=== PATIENT | female | born 1950 | race Two or more races ===

== ENCOUNTER 2023-07-25 19:28 | Inpatient (IN) | payer OTHER, SELFPAY ==
--- NOTE | ~2023-07-25 | CT_ITS ---
EXAMINATION: CT HEAD WITHOUT CONTRAST CLINICAL INFORMATION: Cognitive decline. COMPARISON: No relevant prior imaging. TECHNIQUE: Contiguous axial imaging was performed from the skull base to vertex without intravenous administration of contrast. This CT examination was performed using dose optimization techniques as appropriate, variously including the following: *Automated exposure control *Adjustment of mA and/or kV according to patient size (this includes techniques or standardized protocols for targeted exams where dose is matched to indication/reason for exam; i.e. extremities or head) *Use of iterative reconstruction technique DLP: 632 mGy-cm FINDINGS: There is no acute intracranial hemorrhage or abnormal extra-axial collection. No intracranial mass effect or midline shift. Lateral and third ventricles are normal. No hydrocephalus. Jung-white matter differentiation is preserved and there is no evidence of acute territorial infarct. The calvarium and skull base are intact. Mastoid air cells and middle ear cavities are well aerated. No active paranasal sinus disease. CT/CT head/brain wo IV con IMPRESSION: Normal CT scan of the head.
[2023-07-25 20:46] VITALS: BP 220/110; PULSE 68; RESP 18; TEMP 36.2; O2SAT 99; BMI 31.8
[2023-07-25 21:45] VITALS: BP 160/90
[2023-07-25] MEDS: Acetaminophen 325 MG TABLET 650 MG PO (22:07)
[2023-07-25] MEDS: cloNIDine HCL 0.1 MG TABLET PO (22:08)
[2023-07-25] MEDS: traZODone HCL 50 MG TABLET PO (22:08)
--- NOTE | 2023-07-25 23:43 | PC.ADMIT ---
Lakesha was admitted from [facility] on a Conditional Voluntary hospitalization for suicidal ideation, anxiety, and depression. She is an Khmer speaking woman with a history of several previous suicide attempts. Lakesha is alert and oriented X's 4, soft spoken, pleasant and cooperative. she states that she is feeling overwhelmed because in June it was the third anniversary of [her] husbands . I never felt like this before, I need someone to help me. I want the doctor to get me some medication to feel better, and to get me a therapist or a psychiatrist Lakesha states that she has a supportive family but has been having a hard time for months she states she has lost 30 lbs in the past 3 months r/t decreased appetite secondary to increased depression and anxiety. B/P upon arrival to the unit 223/100 via machine and 200/92 manually. B/P rechecked approximately 1 hour later 160/90 0.1mg of Clonidine given. patient asleep for recheck. Admission documentation completed, treatment plan initiated, patient oriented to the unit, monitor for safety
[2023-07-26] MEDS: Omeprazole 20 MG CAPSULE.DR PO ×2 (06:36→17:02)
[2023-07-26 07:30] VITALS: BP 163/77; PULSE 80; RESP 16; TEMP 36.3; O2SAT 96
[2023-07-26] MEDS: NaPROXEN 500 MG TABLET PO ×2 (08:57→20:27)
[2023-07-26] MEDS: hydroCHLOROthiazide 25 MG TABLET 50 MG PO (08:57)
[2023-07-26] MEDS: Metoprolol Tartrate 100 MG TABLET PO (08:57)
[2023-07-26] MEDS: hydrOXYzine HCL 25 MG TABLET PO (09:02)
[2023-07-26 09:55] VITALS: BP 135/63; PULSE 54; RESP 16
--- NOTE | 2023-07-26 10:00 | P.HPPS_ITS ---
HPI Date of Service: 07/26/23 Chief Complaint: Major Depressive Disorder Recurrent Sources of Information: patient interviewed, chart reviewed and crisis/core team assessment reviewed HPI Subjective Notes: Sanders Warning (given and shows understanding) and Conditional Voluntary Narrative: Mrs. Carlton is a 73 year-old woman who was brought by daughter to [facility] ED due to reports of increase depression, suicidal ideation with plan to cut her wrist in setting of one anniversary of her 's 3 years ago, feeling unsafe at her current apartment and apparently fairly new onset of seeing shadows, hearing voices. In the ED, cbc without leukocitosis, does show normocitic anemia but MCV on higher end of normal. CMP without electrolyte imbalances. UA with trace of leukocites, no culture done. Will repeat UA. EKG sinus rythm, wnl QTc. On the unit, pt presents as cooperative and pleasant. She reports most problems started about 2-3 months ago after she moved to a new apartment. She states she does not feel safe there, that she has heard some voices tells her she should and that she is not safe there. She also finds the place suspicious, although she is not able to report in what way. She reports her anxiety is high and is her outmost concern at this point. She denies any plan or intent to harm herself but reports that when she called her daughter she was in severe emotional distress. She denies hx of suicide attempt. No hx of psychiatric symptoms nor prior hospitalizations. She reports poor sleep and poor appetite due to fear and anxiety. Past Psychiatric History: Inpt: none OP: none Past medication trials: none Hx of suicide attempt: none Medical Evaluation Reviewed: Yes [facility] Medical History (Updated 07/27/23 @ 09:23 by Lidia Boston) Mild intermittent asthma GERD (gastroesophageal reflux disease) HTN (hypertension) Osteoporosis Family History: none Social History: Pt has 5 children who are in the area. Her about 3 years ago. Substance History: None Trauma History: denies Diagnostics Vital Signs (24Hr): Vital Signs - 24 hr 07/25/23 20:46 07/25/23 21:45 07/26/23 07:30 Temperature 97.2 F 97.3 F Pulse Rate 68 80 Respiratory Rate 18 16 Blood Pressure 220/110 H 160/90 H 163/77 H Pulse Oximetry 99 96 Oxygen Delivery Method Room Air Room Air 07/26/23 09:55 Temperature Pulse Rate 54 Respiratory Rate 16 Blood Pressure 135/63 Pulse Oximetry Oxygen Delivery Method BMI result Body Mass Index 31.8 Meds/Allergies Meds Home Medications Medication Instructions Recorded Confirmed Type albuterol sulfate 90 mcg/actuation 2 puff inhalation Q4-5H PRN 07/25/23 07/26/23 History aerosol inhaler (Ventolin HFA) Shortness Of Breath alendronate 70 mg tablet 70 mg PO QWEEK 07/25/23 07/26/23 History lisinopril 40 mg tablet 40 mg PO DAILY 07/25/23 07/25/23 History metoprolol tartrate 100 1 tab PO DAILY 07/25/23 07/25/23 History mg-hydrochlorothiazide 50 mg tablet naproxen 500 mg tablet 500 mg PO BID 07/25/23 07/25/23 History pantoprazole 20 mg tablet,delayed 20 mg PO BID 07/25/23 07/25/23 History release Allergies Allergies Allergy/AdvReac Type Severity Reaction Status Date / Time Unable to Assess Allergy Verified 07/25/23 20:06 Mental Status Exam Mental Status Exam Narrative: Appearance: wearing hospital gown, fair hygiene, in NAD Behavior: cooperative Psychomotor: no agitation or retardation noted Speech: clear, normal rate/rhythm/volume, spontaneous TP: linear TC: feeling very anxious, somewhat uncomfortable about being on the unit Mood: anxious Affect: congruent SI: denies here on the unit as she feels we can help her and feels safe here HI: denies VH/AH: no overt signs Delusions: does appear with some degree of paranoia Insight/judgment: fair x 2 Memory/cog: alert, oriented x 3. However, do recommend completing MOCA and ACL. Assessment & Plan Assessment & Plan (1) MDD (major depressive disorder), recurrent episode, moderate: Status: Acute Code(s): F33.1 - Major depressive disorder, recurrent, moderate Plan Mrs. Carlton is a 73 year-old woman with no prior psych hx who was brought to [facility] ED due to increase depression and suicidal ideation with plan to cut her wrist. As interview goes on, it appears that she has been presenting with more paranoid ideas, and some AH, which is fairly new for her. She does NOT present as delirious. However, new onset of paranoia and hallucinations at her age is more concerning for dementing process like a vascular dementia. Recommend to do medical work up including head CT (looking mostly for atrophy and microvascular changes... may need ask radiologist again to commend on these aspects), check B12/folate (note that also normocitic anemia, MCV is in high end of normal), complete MOCA and ACL. Will repeat UA with microscopic. Gather additional collateral information from family with emphasis on decline in ability to function. We discussed risks, benefits and alternative treatment options, Mrs. carlton agreed to start remeron 15mg po qhs for depression. will start low dose risperidone 0.5mg po qhs. PLAN 1. Admit to , CV, 15 minutes checks for safety 2. start remeron 15mg po qhs 3. start low dose risperidone 0.5mg po qhs. 4. Obtain collateral information 5. Aftercare planning. Patient educated on: diagnosis and medication risk/benefits Informed Consent: understands Reason for continued inpatient stay Substantial Risk for: harm to self and inability to function Statement Statement: I have reviewed the history and physical and performed a pertinent examination on my patient. No changes have occurred unless specified. If the History and Physical was not performed prior to admission, the Hospitalist's service will be consulted for completing the admission p hysical. Time Spent With Patient Time: Total time managing care of this patient today __40__ minutes.
[2023-07-26] MEDS: lisinopriL 40 MG TABLET PO (12:40)
[2023-07-26 18:00] VITALS: BP 166/81; PULSE 61; RESP 16; TEMP 36.1; O2SAT 100
--- NOTE | 2023-07-26 18:05 | P.CONHOSP_ITS ---
History of Present Illness Data of Consult Service Date: 07/26/23 Primary Care Provider: Dorcas Vaca DO HPI Reason for consult: Admission H&P Pt is a 73-year-old Canadian-speaking female with a PMH significant for?HTN, mild intermittent asthma, osteopenia, GERD, anxiety and depression who is admitted to [facility] psychiatry unit for increasing depression with plan to cut herself with a knife. Patient apparently has been experiencing overwhelming hopelessness secondary to her 's anniversary. Medical consult for admission H&P. ?Patient seen and examined with help from bladder blower services. Patient comp lains of increased anxiety, but otherwise has no acute medical complaints at this time. Denies chest pain/pressure, palpitations. No shortness of breath. Denies fever, chills, nausea, vomiting, abdominal pain. No headache or acute vision changes. Review of Systems Review of Systems: Patient has no acute medical complaints at this time [facility] Medical History (Updated 07/26/23 @ 19:17 by LOS Woods) Mild intermittent asthma GERD (gastroesophageal reflux disease) HTN (hypertension) Osteoporosis Social History Household Members: None Housing: Apartment Do you presently have visiting nurse or other home services: No Patient Tobacco Use Status: Current everyday Tobacco user Tobacco use type: Cigarette Smoked in Last 30 Days: Yes Patient Interested in Nicotine Replacement: Yes Patient Given Instructions on How to Stop Smoking: No Second Hand Smoke Exposure: Yes Use of substances other than those prescribed or required for medical reasons: No Currently Displaying Signs/Symptoms of Drug Intoxication Withdrawal: No Any prior treatment program specific to substance use: No Have you been hit, kicked, punched, or otherwise hurt by someone within the past year? If so, by whom?: No Do you feel safe in your current relationship?: No Current Relationship Is there a partner from a previous relationship who is making you feel unsafe now?: No Are you made to feel afraid or neglected: No Advance Directives: No Advance Directives Information Provided: No Do you have thoughts of harming others: None Do you have a plan to hurt others: No Plan Recently lost weight without trying: Yes How much weight loss: 24-33 pounds Eating poorly because of decreased appetite: Yes Nutrition screen score: 6 Nutrition Risks: No Nutritional Risk Patient : No : No Poor oral hygiene: No service: No Sexual orientation: Straight/Heterosexual Meds Allergies Allergy/AdvReac Type Severity Reaction Status Date / Time Unable to Assess Allergy Verified 07/25/23 20:06 Active Medications: Current Medications Acetaminophen (Acetaminophen 325 Mg Tablet) 650 mg PO Q6H PRN PRN Reason: Headache/Pain Mild Scale (1-3) Last Admin: 07/25/23 22:07 Dose: 650 mg Al Hydroxide/Mg Hydroxide (Magnesium Hydrox/Alum Hydrox 30 Ml Oral.Susp) 30 ml PO Q6H PRN PRN Reason: Heartburn/Nausea Hydrochlorothiazide (Hydrochlorothiazide 25 Mg Tablet) 50 mg PO DAILY [facility]; Protocol Last Admin: 07/26/23 08:57 Dose: 50 mg Hydroxyzine HCl (Hydroxyzine Hcl 25 Mg Tablet) 25 mg PO Q6H PRN PRN Reason: Anxiety Last Admin: 07/26/23 09:02 Dose: 25 mg Lisinopril (Lisinopril 40 Mg Tablet) 40 mg PO DAILY [facility]; Protocol Last Admin: 07/26/23 12:40 Dose: 40 mg Magnesium Hydroxide (Milk Of Magnesia 30 Ml Oral.Susp) 30 ml PO DAILY PRN PRN Reason: Constipation Metoprolol Tartrate (Metoprolol Tartrate 100 Mg Tablet) 100 mg PO DAILY [facility]; Protocol Last Admin: 07/26/23 08:57 Dose: 100 mg Naproxen (Naproxen 500 Mg Tablet) 500 mg PO BID [facility] Last Admin: 07/26/23 08:57 Dose: 500 mg Nicotine Polacrilex (Nicotine Polacrilex 2 Mg Gum) 4 mg BUCCAL Q2H PRN PRN Reason: Nicotine Cravings Omeprazole (Omeprazole 20 Mg Capsule.Dr) 20 mg PO BID@0630,1630 [facility] Last Admin: 07/26/23 17:02 Dose: 20 mg Trazodone HCl (Trazodone Hcl 50 Mg Tablet) 50 mg PO BEDTIME PRN PRN Reason: Insomnia Home Medications Medication Instructions Recorded Confirmed Last Taken Type albuterol sulfate 90 mcg/actuation 2 puff inhalation Q4-5H PRN 07/25/23 07/26/23 Unknown History aerosol inhaler (Ventolin HFA) Shortness Of Breath alendronate 70 mg tablet 70 mg PO QWEEK 07/25/23 07/26/23 Unknown History lisinopril 40 mg tablet 40 mg PO DAILY 07/25/23 07/25/23 Unknown History metoprolol tartrate 100 1 tab PO DAILY 07/25/23 07/25/23 Unknown History mg-hydrochlorothiazide 50 mg tablet naproxen 500 mg tablet 500 mg PO BID 07/25/23 07/25/23 Unknown History pantoprazole 20 mg tablet,delayed 20 mg PO BID 07/25/23 07/25/23 Unknown History release Physical Exam Vital Signs and Narrative: Vital Signs: Last Vital Signs Temp 97.3 F 07/26/23 07:30 Pulse 54 07/26/23 09:55 Resp 16 07/26/23 09:55 BP 135/63 07/26/23 09:55 Pulse Ox 96 07/26/23 07:30 O2 Del Method Room Air 07/26/23 07:30 BMI result Body Mass Index 31.8 General: AOx3, no acute distress Resp: CTA bilaterally CVS: S1, S2, RRR GI: +BS, NT, no distention Skin: Warm, dry Neuro: Cranial nerves II-XII grossly intact bilaterally. Motor grossly intact bilaterally Extremities: Non pitting bilateral lower leg edema Psych: Appropriate affect Results Imaging Radiologist's Impressions: Impressions Head CT 07/26/23 13:36 IMPRESSION: Normal CT scan of the head. Assessment and Plan (1) Medical clearance for psychiatric admission: Status: Acute Plan Pt is a 73-year-old Canadian-speaking female with a PMH significant for?HTN, mild intermittent asthma, osteopenia, GERD, anxiety and depression who is admitted to [facility] psychiatry unit for increasing depression with plan to cut herself with a knife. Patient apparently has been experiencing overwhelming hopelessness secondary to her 's anniversary. Medical consult for admission H&P. Mood disorder Plan as per Psychiatry HTN Continue lisinopril, metoprolol, and hydrochlorothiazide Osteoporosis Continue alendronate GERD Continue PPI Thank you for allowing us to participate in the care of this patient. Signing off at this time. Please re-consult if any acute complaints or issues arise.
--- NOTE | 2023-07-26 19:17 | PC.NURSE ---
Mari Luke HIDE PULLER made aware of BP 188/81 on 07/26/23 at 1918.
[2023-07-26] MEDS: traZODone HCL 50 MG TABLET PO (20:27)
[2023-07-27] MEDS: Omeprazole 20 MG CAPSULE.DR PO ×2 (06:43→15:50)
[2023-07-27 08:07] VITALS: BP 159/72; PULSE 70; RESP 16; TEMP 36.4; O2SAT 95
[2023-07-27] MEDS: Metoprolol Tartrate 100 MG TABLET PO (08:09)
[2023-07-27] MEDS: lisinopriL 40 MG TABLET PO (08:09)
[2023-07-27] MEDS: NaPROXEN 500 MG TABLET PO ×2 (08:09→20:04)
[2023-07-27] MEDS: hydroCHLOROthiazide 25 MG TABLET 50 MG PO (08:09)
--- NOTE | 2023-07-27 09:22 | P.PNPSI_ITS ---
Subjective Subjective Date of Service: 07/27/23 Reason For Visit: Major Depressive Disorder Recurrent Subjective Notes: Conditional Voluntary Interim History: Seen with historical interpreter. Complaining of anxiety. When asked why she is anxious, states that she is thinking about her 4 family members who . Denies voices today but has been endorsing them as recently as yesterday. Reports eating and sleeping OK. Needs UA collected. Medication Compliance: Yes Side effects from medications: No Review of Systems Acute medical concerns: No Mental Status Exam Mental Status Exam Patient Appearance: Well Grooomed Patient Orientation: Person, Place and Time Level of Consciousness: Alert Patient Behavior: Appropriate Mood Description: Anxious Affect Description: Calm Patient Cognition Impaired: No Speech Pattern: Clear Hallucinations: None Delusions: Not Present Thought Process: Goal Oriented Thought Content: positive for Perseveration Depressive Symptoms: Increased Anxiety Judgement: Fair Diagnostics Vital Signs (24Hr): Vital Signs - 24 hr 07/26/23 09:55 07/26/23 18:00 07/27/23 08:07 Temperature 97 F 97.5 F Pulse Rate 54 61 70 Respiratory Rate 16 16 16 Blood Pressure 135/63 166/81 H 159/72 H Pulse Oximetry 100 95 Oxygen Delivery Method Room Air Room Air BMI result Body Mass Index 31.8 Imaging Radiology Impressions: ITS Impressions Head CT 07/26/23 13:36 IMPRESSION: Normal CT scan of the head. Medications Medications Current Medications Acetaminophen (Acetaminophen 325 Mg Tablet) 650 mg PO Q6H PRN PRN Reason: Headache/Pain Mild Scale (1-3) Last Admin: 07/25/23 22:07 Dose: 650 mg Al Hydroxide/Mg Hydroxide (Magnesium Hydrox/Alum Hydrox 30 Ml Oral.Susp) 30 ml PO Q6H PRN PRN Reason: Heartburn/Nausea Hydrochlorothiazide (Hydrochlorothiazide 25 Mg Tablet) 50 mg PO DAILY [facility]; Protocol Last Admin: 07/27/23 08:09 Dose: 50 mg Hydroxyzine HCl (Hydroxyzine Hcl 25 Mg Tablet) 25 mg PO Q6H PRN PRN Reason: Anxiety Last Admin: 07/26/23 09:02 Dose: 25 mg Lisinopril (Lisinopril 40 Mg Tablet) 40 mg PO DAILY [facility]; Protocol Last Admin: 07/27/23 08:09 Dose: 40 mg Magnesium Hydroxide (Milk Of Magnesia 30 Ml Oral.Susp) 30 ml PO DAILY PRN PRN Reason: Constipation Metoprolol Tartrate (Metoprolol Tartrate 100 Mg Tablet) 100 mg PO DAILY [facility]; Protocol Last Admin: 07/27/23 08:09 Dose: 100 mg Naproxen (Naproxen 500 Mg Tablet) 500 mg PO BID [facility] Last Admin: 07/27/23 08:09 Dose: 500 mg Nicotine Polacrilex (Nicotine Polacrilex 2 Mg Gum) 4 mg BUCCAL Q2H PRN PRN Reason: Nicotine Cravings Omeprazole (Omeprazole 20 Mg Capsule.Dr) 20 mg PO BID@0630,1630 [facility] Last Admin: 07/27/23 06:43 Dose: 20 mg Trazodone HCl (Trazodone Hcl 50 Mg Tablet) 50 mg PO BEDTIME PRN PRN Reason: Insomnia Last Admin: 07/26/23 20:27 Dose: 50 mg Allergies Allergies Allergy/AdvReac Type Severity Reaction Status Date / Time Unable to Assess Allergy Verified 07/25/23 20:06 Assessment & Plan Assessment & Plan (1) Medical clearance for psychiatric admission: Status: Acute Code(s): Z00.8 - Encounter for other general examination (2) MDD (major depressive disorder), recurrent episode, moderate: Status: Acute Code(s): F33.1 - Major depressive disorder, recurrent, moderate Assessment and Plan: Continue mirtazapine and risperdal Plan Pt is a 73-year-old Greek-speaking female with a PMH significant for?HTN, mild intermittent asthma, osteopenia, GERD, anxiety and depression who is admitted to psychiatry unit for increasing depression with plan to cut herself with a knife. Patient apparently has been experiencing overwhelming hopelessness secondary to her 's anniversary. Medical consult for admission H&P. Mood disorder Plan as per Psychiatry HTN Continue lisinopril, metoprolol, and hydrochlorothiazide Osteoporosis Continue alendronate GERD Continue PPI Thank you for allowing us to participate in the care of this patient. Signing off at this time. Please re-consult if any acute complaints or issues arise. Reason for continued inpatient stay Substantial Risk for: med/psych decompensation Time Spent With Patient Time: Total time managing care of this patient today ____ minutes.
--- NOTE | 2023-07-27 13:24 | PC.NURSE ---
Pt could not produce enough urine for UA sample. Will attempt to collect urine again later.
[2023-07-27 14:47] LABS: Appearance Urine Clear; Color Urine Yellow; Glucose Urine UA Negative (Negative); Leukocyte Esterase Urine Trace (Negative); Nitrite Urine Negative (Negative); Specific Gravity - Urine 1.015 (1.005-1.025); UMIC TRIGGER UA YES; Urine Blood Negative (Negative); Urine Ketones Negative (Negative); Urine Protein Negative (Neg-Trace)
[2023-07-27 14:52] LABS: Bacteria Urine Trace (None Seen); RBC Urine 0-2 /HPF (0-2); WBC Urine 0-5 /HPF (0-5)
[2023-07-27 20:00] VITALS: BP 194/86; PULSE 73; RESP 16; TEMP 36.1; O2SAT 96
[2023-07-27] MEDS: traZODone HCL 50 MG TABLET PO (20:04)
[2023-07-27] MEDS: Mirtazapine 15 MG TABLET PO (20:04)
[2023-07-27] MEDS: risperiDONE 0.5 MG TABLET PO (20:04)
[2023-07-27 22:49] VITALS: BP 140/60; PULSE 63; RESP 14; O2SAT 98
[2023-07-28] MEDS: Omeprazole 20 MG CAPSULE.DR PO ×2 (06:29→16:32)
[2023-07-28 07:20] VITALS: BP 160/74; PULSE 63; RESP 16; TEMP 35.5; O2SAT 98
--- NOTE | 2023-07-28 07:49 | P.PNPSI_ITS ---
Subjective Subjective Date of Service: 07/28/23 Reason For Visit: Major Depressive Disorder Recurrent Subjective Notes: Conditional Voluntary Interim History: Patient was seen and discussed in rounds today. Records and plans were reviewed. She has been doing a little better with some anxiety and depression over some family related issues. No auditory or visual hallucinations. Eating and sleeping well. No complaints or side effects. No changes were made today Review of Systems Review of Systems Yes all other systems are reviewed and are negative Mental Status Exam Mental Status Exam Patient Appearance: Well Grooomed Patient Orientation: Person, Place and Time Level of Consciousness: Alert Patient Behavior: Appropriate Mood Description: Anxious Affect Description: Calm Patient Cognition Impaired: No Speech Pattern: Clear Hallucinations: None Delusions: Not Present Thought Process: Goal Oriented Thought Content: positive for Perseveration Depressive Symptoms: Increased Anxiety Judgement: Fair Diagnostics Vital Signs (24Hr): Vital Signs - 24 hr 07/27/23 08:07 07/27/23 20:00 07/27/23 22:49 Temperature 97.5 F 96.9 F Pulse Rate 70 73 63 Respiratory Rate 16 16 14 Blood Pressure 159/72 H 194/86 H 140/60 H Pulse Oximetry 95 96 98 Oxygen Delivery Method Room Air Room Air Room Air BMI result Body Mass Index 31.8 Labs Labs: Laboratory Results - last 48 hr 07/27/23 14:35 Urine Color Yellow Urine Appearance Clear Urine pH 5.0 Ur Specific [place] 1.015 Urine Protein Negative Urine Glucose (UA) Negative Urine Ketones Negative Urine Blood Negative Urine Nitrite Negative Ur Leukocyte Esterase Trace H Urine RBC 0-2 Urine WBC 0-5 Ur Squamous Epith Cells 3-5 Urine Bacteria Trace Hyaline Casts 3-5 Imaging Radiology Impressions: ITS Impressions Head CT 07/26/23 13:36 IMPRESSION: Normal CT scan of the head. Medications Medications Current Medications Acetaminophen (Acetaminophen 325 Mg Tablet) 650 mg PO Q6H PRN PRN Reason: Headache/Pain Mild Scale (1-3) Last Admin: 07/25/23 22:07 Dose: 650 mg Al Hydroxide/Mg Hydroxide (Magnesium Hydrox/Alum Hydrox 30 Ml Oral.Susp) 30 ml PO Q6H PRN PRN Reason: Heartburn/Nausea Hydrochlorothiazide (Hydrochlorothiazide 25 Mg Tablet) 50 mg PO DAILY [facility]; Protocol Last Admin: 07/27/23 08:09 Dose: 50 mg Hydroxyzine HCl (Hydroxyzine Hcl 25 Mg Tablet) 25 mg PO Q6H PRN PRN Reason: Anxiety Last Admin: 07/26/23 09:02 Dose: 25 mg Lisinopril (Lisinopril 40 Mg Tablet) 40 mg PO DAILY [facility]; Protocol Last Admin: 07/27/23 08:09 Dose: 40 mg Magnesium Hydroxide (Milk Of Magnesia 30 Ml Oral.Susp) 30 ml PO DAILY PRN PRN Reason: Constipation Metoprolol Tartrate (Metoprolol Tartrate 100 Mg Tablet) 100 mg PO DAILY [facility]; Protocol Last Admin: 07/27/23 08:09 Dose: 100 mg Mirtazapine (Mirtazapine 15 Mg Tablet) 15 mg PO BEDTIME [facility] Last Admin: 07/27/23 20:04 Dose: 15 mg Naproxen (Naproxen 500 Mg Tablet) 500 mg PO BID [facility] Last Admin: 07/27/23 20:04 Dose: 500 mg Nicotine Polacrilex (Nicotine Polacrilex 2 Mg Gum) 4 mg BUCCAL Q2H PRN PRN Reason: Nicotine Cravings Omeprazole (Omeprazole 20 Mg Capsule.Dr) 20 mg PO BID@0630,1630 [facility] Last Admin: 07/28/23 06:29 Dose: 20 mg Risperidone (Risperidone 0.5 Mg Tablet) 0.5 mg PO BEDTIME [facility] Last Admin: 07/27/23 20:04 Dose: 0.5 mg Trazodone HCl (Trazodone Hcl 50 Mg Tablet) 50 mg PO BEDTIME PRN PRN Reason: Insomnia Last Admin: 07/27/23 20:04 Dose: 50 mg Allergies Allergies Allergy/AdvReac Type Severity Reaction Status Date / Time Unable to Assess Allergy Verified 07/25/23 20:06 Assessment & Plan Assessment & Plan (1) MDD (major depressive disorder), recurrent episode, moderate: Status: Acute Code(s): F33.1 - Major depressive disorder, recurrent, moderate (2) Medical clearance for psychiatric admission: Status: Acute Code(s): Z00.8 - Encounter for other general examination Plan Mrs. Carlton is a 73 year-old woman with no prior psych hx who was brought to [facility] ED due to increase depression and suicidal ideation with plan to cut her wrist. As interview goes on, it appears that she has been presenting with more paranoid ideas, and some AH, which is fairly new for her. She does NOT present as delirious. However, new onset of paranoia and hallucinations at her age is more concerning for dementing process like a vascular dementia. Recommend to do medical work up including head CT (looking mostly for atrophy and microvascular changes... may need ask radiologist again to commend on these aspects), check B12/folate (note that also normocitic anemia, MCV is in high end of normal), complete MOCA and ACL. Will repeat UA with microscopic. Gather additional collateral information from family with emphasis on decline in ability to function. We discussed risks, benefits and alternative treatment options, Mrs. carlton agreed to start remeron 15mg po qhs for depression. will start low dose risperidone 0.5mg po qhs. PLAN 1. Admit to M3, CV, 15 minutes checks for safety 2. start remeron 15mg po qhs 3. start low dose risperidone 0.5mg po qhs. 4. Obtain collateral information 5. Aftercare planning. 07/28: Continue current plans and regimen Reason for continued inpatient stay Substantial Risk for: med/psych decompensation Time Spent With Patient Time: Total time managing care of this patient today ____ minutes.
[2023-07-28 08:30] VITALS: BP 201/86; PULSE 66; RESP 18; O2SAT 99
[2023-07-28] MEDS: NaPROXEN 500 MG TABLET PO ×2 (08:31→20:47)
[2023-07-28] MEDS: lisinopriL 40 MG TABLET PO (08:32)
[2023-07-28] MEDS: Metoprolol Tartrate 100 MG TABLET PO (08:32)
[2023-07-28] MEDS: hydroCHLOROthiazide 25 MG TABLET 50 MG PO (08:33)
[2023-07-28 09:40] VITALS: BP 138/64; PULSE 61; RESP 18; O2SAT 99
[2023-07-28 19:45] VITALS: BP 186/82; PULSE 71; RESP 18; TEMP 36.4; O2SAT 97
[2023-07-28] MEDS: Mirtazapine 15 MG TABLET PO (20:48)
[2023-07-28] MEDS: cloNIDine HCL 0.1 MG TABLET PO (20:48)
[2023-07-28] MEDS: risperiDONE 0.5 MG TABLET PO (20:48)
[2023-07-28] MEDS: Acetaminophen 325 MG TABLET 650 MG PO (20:48)
[2023-07-28 21:32] VITALS: BP 163/75; PULSE 75; RESP 18
--- NOTE | 2023-07-29 02:19 | PC.NURSE ---
Lakesha was noted to be visible in the day room socializing with select peers and watching the football game. she c/o a headache and her B/P was noted to be 186/82. a 1x order for 0.1mg of clonidine was obtained and administered.B/P recheck 163/75 and patient stated that her headache was better. she endorses depression and anxiety r/t wanting to go home and be with her family. she denies all other psych symptoms. monitor for safety, continue current Plan of Care
[2023-07-29] MEDS: Omeprazole 20 MG CAPSULE.DR PO ×2 (06:44→16:15)
[2023-07-29 07:15] VITALS: BP 174/85; PULSE 78; RESP 18; TEMP 36.1; O2SAT 98
[2023-07-29] MEDS: hydroCHLOROthiazide 25 MG TABLET 50 MG PO (08:27)
[2023-07-29] MEDS: Metoprolol Tartrate 100 MG TABLET PO (08:28)
[2023-07-29] MEDS: NaPROXEN 500 MG TABLET PO ×2 (08:28→20:43)
[2023-07-29] MEDS: lisinopriL 40 MG TABLET PO (08:33)
--- NOTE | 2023-07-29 15:08 | P.DS_ITS ---
DS: Providers Provider Date of Service: 07/29/23 Date of admission: 07/25/23 19:28 Primary care physician: Dorcas Vaca DO Consults: 07/25/23 20:06 Consult to Hospitalist Routine Comment: Consulting Provider: Hospitalist Reason For Exam: OSH admission DS: Diagnosis Discharge Diagnosis (1) MDD (major depressive disorder), recurrent episode, moderate: Status: Acute (2) Medical clearance for psychiatric admission: Status: Acute DS: Medications Discharge Medications Home Medications: Home Medications Medication Instructions Recorded Confirmed albuterol sulfate 90 mcg/actuation 2 puff inhalation Q4-5H PRN 07/25/23 07/26/23 aerosol inhaler (Ventolin HFA) Shortness Of Breath alendronate 70 mg tablet 70 mg PO QWEEK 07/25/23 07/26/23 lisinopril 40 mg tablet 40 mg PO DAILY 07/25/23 07/25/23 metoprolol tartrate 100 1 tab PO DAILY 07/25/23 07/25/23 mg-hydrochlorothiazide 50 mg tablet pantoprazole 20 mg tablet,delayed 20 mg PO BID 07/25/23 07/25/23 release Previous Rx's Medication Instructions Recorded mirtazapine 15 mg tablet 15 mg PO BEDTIME 30 days #30 tabs 07/29/23 naproxen 500 mg tablet 500 mg PO BID 30 days #60 tabs 07/29/23 risperidone 0.5 mg tablet 0.5 mg PO BEDTIME 30 days #30 tabs 07/29/23 Mental Status Exam Mental Status Exam Narrative: Appearance: wearing street clothes, fair hygiene, in NAD Behavior: cooperative Psychomotor: no agitation or retardation noted Speech: clear, normal rate/rhythm/volume, spontaneous TP: linear TC: no delusions or paranoia Mood: good Affect: congruent SI: denies since prior to admission HI: denies VH/AH: denies since prior to admission Insight/judgment: fair x 2 Data Data Completed and Pending Completed studies during hospitalization [Text1]: 07/27/23 14:35 Urine Color Yellow Urine Appearance Clear Urine pH 5.0 Ur Specific [place] 1.015 Urine Protein Negative Urine Glucose (UA) Negative Urine Ketones Negative Urine Blood Negative Urine Nitrite Negative Ur Leukocyte Esterase Trace H Urine RBC 0-2 Urine WBC 0-5 Ur Squamous Epith Cells 3-5 Urine Bacteria Trace Hyaline Casts 3-5 Imaging Diagnostic Imaging Impressions Head CT 07/26/23 13:36 IMPRESSION: Normal CT scan of the head. DS: Summary Hospital Course Hospital Course: per 07/26 admission note: Mrs. Kline is a 73 year-old woman who was brought by daughter to [facility] ED due to reports of increase depression, suicidal ideation with plan to cut her wrist in setting of one anniversary of her 's 3 years ago, feeling unsafe at her current apartment and apparently fairly new onset of seeing shadows, hearing voices. In the ED, cbc without leukocitosis, does show normocitic anemia but MCV on higher end of normal. CMP without electrolyte imbalances. UA with trace of leukocites, no culture done. Will repeat UA. EKG sinus rythm, wnl QTc. On the unit, pt presents as cooperative and pleasant. She reports most problems started about 2-3 months ago after she moved to a new apartment. She states she does not feel safe there, that she has heard some voices tells her she should and that she is not safe there. She also finds the place suspicious, although she is not able to report in what way. She reports her anxiety is high and is her outmost concern at this point. She denies any plan or intent to harm herself but reports that when she called her daughter she was in severe emotional distress. She denies hx of suicide attempt. No hx of psychiatric symptoms nor prior hospitalizations. She reports poor sleep and poor appetite due to fear and anxiety. Past Psychiatric History: Inpt: none OP: none Past medication trials: none Hx of suicide attempt: none Medical Evaluation Reviewed: Yes [facility] Medical History (Updated 07/27/23 @ 09:23 by Lidia Boston) Mild intermittent asthma GERD (gastroesophageal reflux disease) HTN (hypertension) Osteoporosis Family History: none Social History: Pt has 5 children who are in the area. Her about 3 years ago. Substance History: None Trauma History: denies Precis: Mrs. Kline is a 73 year-old woman with no prior psych hx who was brought to [facility] ED due to increase depression and suicidal ideation with plan to cut her wrist. As interview goes on, it appears that she has been presenting with more paranoid ideas, and some AH, which is fairly new for her. She does NOT present as delirious. However, new onset of paranoia and hallucinations at her age is more concerning for dementing process like a vascular dementia. Recommend to do medical work up including head CT (looking mostly for atrophy and microvascular changes... may need ask radiologist again to commend on these aspects), check B12/folate (note that also normocitic anemia, MCV is in high end of normal), complete MOCA and ACL. Will repeat UA with microscopic. Gather additional collateral information from family with emphasis on decline in ability to function. We discussed risks, benefits and alternative treatment options, Mrs. kline agreed to start remeron 15mg po qhs for depression. will start low dose risperidone 0.5mg po qhs. 07/26: Admit to M3, CV, 15 minutes checks for safety. start remeron 15mg po qhs. start low dose risperidone 0.5mg po qhs. Obtain collateral information. Aftercare planning. 07/28: Continue current plans and regimen. 07/29: calm, cooperative, mood improved. asking for discharge tomorrow. meds reviewed, reconciled, prescribed. 07/30: stable. discharged as per plan. Time Spent with Patient Time attestation: Total time managing care of this patient today ____ minutes. Time spent: Greater than 30 minutes Discharge Plan Discharge Anticipated Discharge Date/Time: 07/30/23 10:30 Patient Disposition: Home, Self-Care Discharge Diagnosis: Depressive Disorder Referrals: Anuj Meraz (Therapy) [Other] - 07/31/23 1:00 pm (IN OFFICE APPOINTMENT -Please arrive fifteen minutes early to your appointment in order to fill out necessary paperwork. ) Corine Meier (Psychiatry) [Other] - 08/29/23 9:15 am (TELEHEALTH APPOINTMENT -Psychiatric Evaluation ) Corine Meier (Psychiatry) [Other] - 09/30/23 11:00 am (TELEHEALTH APPOINTMENT -Medication Management ) Dorcas Vaca, [Primary Care Provider] - 1 Week (PCP is Dorcas Vaca @ [phone], office closed- patient needs to call to make discharge follow-up.) Discharge Medications: New mirtazapine 15 mg Tablet 15 mg PO BEDTIME 30 Days Qty: 30 0RF risperidone 0.5 mg Tablet 0.5 mg PO BEDTIME 30 Days Qty: 30 0RF Continued alendronate 70 mg tablet 70 mg PO QWEEK metoprolol ta-hydrochlorothiaz 100-50 mg tablet 1 tab PO DAILY pantoprazole 20 mg tablet,delayed release (DR/EC) 20 mg PO BID albuterol sulfate [Ventolin HFA] 90 mcg/actuation HFA aerosol inhaler 2 puff inhalation Q4-5H PRN (Reason: Shortness Of Breath) lisinopril 40 mg tablet 40 mg PO DAILY naproxen 500 mg tablet 500 mg PO BID 30 Days Qty: 60 0RF Rx Instructions: X's 5 days Discharge Orders: Discharge Order (Routine); Ordered 07/30/23 Ordered By: Brandon Chin Diet: Advance to usual diet Activity on Discharge: As tolerated Stand Alone Forms: Patient Portal Discharge page, Community Support Care Plan Goals: remain safe and stable in the outpatient treatment setting Health Concerns: none Plan of Treatment: take medications as prescribed, attend appoitments as scheduled Assessment: not at imminent risk of harm to self or others
[2023-07-29 18:00] VITALS: BP 146/69; PULSE 69; RESP 15; TEMP 36; O2SAT 96
[2023-07-29] MEDS: risperiDONE 0.5 MG TABLET PO (20:44)
[2023-07-29] MEDS: Mirtazapine 15 MG TABLET PO (20:44)
[2023-07-30] MEDS: Omeprazole 20 MG CAPSULE.DR PO (05:51)
[2023-07-30] MEDS: hydroCHLOROthiazide 25 MG TABLET 50 MG PO (08:32)
[2023-07-30] MEDS: Metoprolol Tartrate 100 MG TABLET PO (08:32)
[2023-07-30] MEDS: NaPROXEN 500 MG TABLET PO (08:32)
[2023-07-30] MEDS: lisinopriL 40 MG TABLET PO (08:33)
[2023-07-30 08:45] VITALS: BP 150/66; PULSE 63; RESP 16; TEMP 36.2; O2SAT 98
--- NOTE | 2023-07-30 09:52 | PC.NURSE ---
Lakesha is alert, fully oriented, pleasant and cooperative with discharge process. She denies ideation, plan or intent to harm self or others. She denies physical complaint. She verbalizes understanding of discharge plan including medication regime and appointments.
== END 2023-07-30 10:40 | disposition home or self-care (01) | DRG 885 ==
PROVIDERS: Social Worker; Admitting Provider Psychiatry & Neurology Psychiatry; PCP Student in an Organized Health Care Education/Training Program; Visit Provider Psychiatry & Neurology Psychiatry
DX: F33.1 Major depressive disorder, recurrent, moderate (principal); R45.851 Suicidal ideations; J45.20 Mild intermittent asthma, uncomplicated; I10 Essential (primary) hypertension; K21.9 Gastro-esophageal reflux disease without esophagitis; F17.210 Nicotine dependence, cigarettes, uncomplicated; Z71.6 Tobacco abuse counseling; Z79.899 Other long term (current) drug therapy
CPT/HCPCS: 70450; 81001

== ENCOUNTER → 2023-07-25 19:28 | Outpatient (BNV) | payer OTHER, SELFPAY | PROVIDERS: Admitting Provider Psychiatry & Neurology Psychiatry; PCP Student in an Organized Health Care Education/Training Program; Visit Provider Student in an Organized Health Care Education/Training Program | DX: Z02.2 Encounter for examination for admission to residential institution (principal) | CPT/HCPCS: 99429 ==

== ENCOUNTER → 2023-07-25 19:28 | Outpatient (BNV) | payer OTHER, SELFPAY | PROVIDERS: Admitting Provider Psychiatry & Neurology Psychiatry; PCP Student in an Organized Health Care Education/Training Program; Visit Provider Psychiatry & Neurology Psychiatry | DX: F33.1 Major depressive disorder, recurrent, moderate (principal) | CPT/HCPCS: 90792; 99231; 99238 ==

== ENCOUNTER 2025-06-15 10:45 | Outpatient (AMB) | payer OTHER, SELFPAY ==
--- NOTE | 2025-06-15 11:24 | A.OFFVIS_ITS ---
Intake Visit Reasons: Memory Loss Allergies Unable to Assess Allergy (Verified 07/25/23 20:06) HPI Comments Details: The patient is a 75-year-old female who presents for evaluation of memory loss, brought in by her daughter. The patient's daughter reports that she forgets a lot, and there have been a couple of instances where she has gone outside and become disoriented, requiring assistance to return home, though this does not happen often. Associated symptoms include urinary incontinence and occasional difficulty walking. Her daughter notes a personality change, describing her as more depressed now and prone to crying. The patient suffers from insomnia and requires an [id number] medication nightly to sleep. About 4-5 months ago, she experienced an episode of visual hallucinations, which prompted an ambulance call and a week-long admission to a facility in [place]. The patient was admitted to a psychiatric [facility] last year for depression with suicidal ideation. A head CT at that time was normal. She subsequently refused to continue with both medication and care for her psychiatric condition. There is no family history of dementia. She has a [employer] but previously worked as a INSTRUCTIONAL TECHNOLOGY DIRECTOR, having stopped about 20 years ago. She does not use alcohol or illicit drugs and lives with her daughter. She is currently attending a program where she receives therapy, and while her daughter notes some improvement, she still experiences episodes of depression. [facility] Medical History (Updated 06/15/25 @ 11:36 by Ruth Pereira MD) Medical clearance for psychiatric admission Mild intermittent asthma GERD (gastroesophageal reflux disease) HTN (hypertension) Osteoporosis Social History Household Members: None Housing: Apartment Do you presently have visiting nurse or other home services: No Patient Tobacco Use Status: Current everyday Tobacco user Tobacco use type: Cigarette Second Hand Smoke Exposure: Yes service: No Sexual orientation: Straight/Heterosexual Review of Systems Narrative - Neurological: Reports memory loss and episodes of disorientation. - Denies syncope. - Psychiatric: Reports depressed mood and crying spells. - History of visual hallucinations and suicidal ideation. - Musculoskeletal: Reports occasional difficulty with walking. - Genitourinary: Reports urinary incontinence. - Sleep: Reports insomnia. Physical Exam Neuro Other: Mental Status: She is alert and awake with normal spontaneity of speech fluency comprehension and affect. Cranial Nerves: CN II: Visual dale full to confrontation, visual acuity intact. CN III, IV, : Pupils equal, round, reactive to light and accommodation. Extraocular movements are normal. CN V: Facial sensation is normal. CN VII: Facial movements symmetrical. CN VIII: Hearing intact to bedside conversation is normal. CN IX, X: Palate elevates symmetrically. CN XI: Shoulder shrug and head turn symmetrical. CN XII: Tongue midline without atrophy or fasciculations. Motor: Bulk and tone normal in all extremities. No significant muscle weakness in arms and legs. No drift. Reflexes: Deep tendon reflexes are trace to absent. Coordination: [id number] is okay. Gait and Station: No obvious gait abnormality. No ataxia or instability. Extrapyramidal: Full facial expressions and blinking. No rigidity. Movements are appropriate with no tremor or abnormality. Speech: Normal; no dysarthria or tremor. Results Reviewed Results Reviewed: CT HEAD WITHOUT CONTRAST CLINICAL INFORMATION: Cognitive decline. COMPARISON: No relevant prior imaging. TECHNIQUE: Contiguous axial imaging was performed from the skull base to vertex without intravenous administration of contrast. This CT examination was performed using dose optimization techniques as appropriate, variously including the following: *Automated exposure control *Adjustment of mA and/or kV according to patient size (this includes techniques or standardized protocols for targeted exams where dose is matched to indication/reason for exam; i.e. extremities or head) *Use of iterative reconstruction technique DLP: 632 mGy-cm FINDINGS: There is no acute intracranial hemorrhage or abnormal extra-axial collection. No intracranial mass effect or midline shift. Lateral and third ventricles are normal. No hydrocephalus. Jung-white matter differentiation is preserved and there is no evidence of acute territorial infarct. The calvarium and skull base are intact. Mastoid air cells and middle ear cavities are well aerated. No active paranasal sinus disease. CT/CT head/brain wo IV con IMPRESSION: Normal CT scan of the head. Assessment & Plan Assessment & Plan (1) Dementia with behavioral disturbance: Comment: CT brain WO at [facility] [place] Jul 2023: Minimal MVD Code(s): F03.918 - Unspecified dementia, unspecified severity, with other behavioral disturbance Category: Medical Plan Impression: Dementia with behavioral symptoms including depression Rec: a: Education of daughter b: Labs c: Sertraline 25mg one a day d: Continue with therapy I discussed with the patient's daughter that her mother's symptoms of forgetfulness and disorientation could be due to a dementia process, but also noted that they can present as part of a severe depression. I explained that we need to rule out treatable causes for her symptoms, and for this reason, I ordered blood tests and a new CT scan of her head. I recommended starting with an antidepressant as the first step in treatment. I informed her that the prescription was sent to the pharmacy, the lab orders were in the computer for her to have done today, and that the office would provide a follow-up appointment. Orders: Orders Thyroid Stimulating Hormone Today F03.918 - Unspecified dementia, unspecified severity, with other behavioral disturbance Syphilis Screen Today F03.918 - Unspecified dementia, unspecified severity, with other behavioral disturbance Lyme IgG/IgM w/reflex to WB Today F03.918 - Unspecified dementia, unspecified severity, with other behavioral disturbance Vitamin B12 and Folate Today F03.918 - Unspecified dementia, unspecified severity, with other behavioral disturbance Medications: New sertraline 25 mg PO DAILY 90 tabs 0RF Coding Level of Care Code New Pt Level 4 (43635) Diagnoses Dementia with behavioral disturbance F03.918
--- OUTSIDE RECORDS SUMMARY | 2025-06-15 14:28 | XMS_ITS | Clinical Summary ---
Author Organization [facility] [address] [facility] [place] Address [address] [place] [address] Phone Care Team Providers Care Communications Coordinator Name Role Phone Chantelle Voss MD Primary Care Provider Allergies No known active allergies Medications loratadine (CLARITIN) 10 mg tablet Take 1 Tablet by mouth daily for 360 days. 3 Active calcium carbonate 1,500 mg (600 mg elemental calcium) tablet TAKE 1 TABLET BY MOUTH TWICE DAILY WITH MEALS 56 tablet 5 Active cholecalciferol (VITAMIN D-3) 25 mcg (1,000 unit) capsule Take 1 capsule (1,000 Units total) by mouth 1 (one) time each day. Active fluticasone propionate (FLONASE) 50 mcg/actuation nasal spray SHAKE LIQUID AND USE 2 SPRAYS IN EACH NOSTRIL DAILY NEEDED FOR RUNNY NOSE OR ALLERGIES 48 g 5 Active metoprolol-hydr oCHLOROthiazide (LOPRESSOR HCT) 100-50 mg per tablet Take 1 tablet by mouth 1 (one) time each day. 90 tablet 5 Active pantoprazole (PROTONIX) 20 mg EC tablet Take 1 tablet (20 mg total) by mouth 2 (two) times a day. 180 tablet 5 Active simvastatin (ZOCOR) 20 mg tablet Take 1 tablet (20 mg total) by mouth at bedtime. 90 tablet 5 Active lisinopril (PRINIVIL,ZESTR IL) 40 mg tablet Take 1 tablet (40 mg total) by mouth 1 (one) time each day. 90 tablet 5 Active albuterol HFA (PROAIR HFA ; PROVENTIL HFA ; VENTOLIN HFA) 90 mcg/actuation inhaler Inhale 2 Puffs into the lungs every 4 hours as needed for Cough or Wheezing. 54 g 5 Active metoprolol-hydr oCHLOROthiazide (LOPRESSOR HCT) 100-50 mg per tablet TAKE 1 TABLET BY MOUTH EVERY DAY 90 tablet 1 5 05/18/20 25 Discontinu ed(Reorder ) lisinopril (PRINIVIL,ZESTR IL) 40 mg tablet Take 1 tablet (40 mg total) by mouth 1 (one) time each day. 90 tablet 1 5 05/18/20 25 Discontinu ed(Reorder ) simvastatin (ZOCOR) 20 mg tablet Take 1 tablet (20 mg total) by mouth at bedtime. 90 tablet 1 5 05/18/20 25 Discontinu ed(Reorder ) pantoprazole (PROTONIX) 20 mg EC tablet Take 1 tablet (20 mg total) by mouth 2 (two) times a day. 180 tablet 5 05/18/20 25 Discontinu ed(Reorder ) albuterol HFA (PROAIR HFA ; PROVENTIL HFA ; VENTOLIN HFA) 90 mcg/actuation inhaler Inhale 2 Puffs into the lungs every 4 hours as needed for Cough or Wheezing. 6.7 g 5 05/18/20 25 Discontinu ed(Reorder ) fluticasone propionate (FLONASE) 50 mcg/actuation nasal spray SHAKE LIQUID AND USE 2 SPRAYS IN EACH NOSTRIL DAILY NEEDED FOR RUNNY NOSE OR ALLERGIES 48 g 5 05/18/20 25 Discontinu ed(Reorder ) Active Problems Problem Noted Date Diagnosed Date Chronic back pain 03/17/2024 Essential hypertension, benign 03/17/2024 GERD (gastroesophageal reflux disease) 4 Hyperlipemia 03/17/2024 Mild intermittent asthma without complication Urge incontinence of urine 05/16/2023 Varicose veins with pain 02/06/2019 Vitamin D deficiency 12/23/2018 Hypokalemia 11/18/2018 Overview (03/17/2024): 3.1--will replace with k- tab Prediabetes 11/18/2018 Vitamin B12 deficiency 11/18/2018 Tubular adenoma of colon 11/05/2018 Overview (03/17/2024): 2013, due in 2016 Varicose veins of both lower extremities 019 Osteoporosis 04/29/2015 Overview (03/17/2024): Bone density scan 04/08/2015 OA (osteoarthritis) of knee 09/25/2011 Depression 10/05/2010 Immunizations Immunization Administration Dates Next Due Influenza Quadravalent, MDCK , 0.5ml, with preservative (Flucelvax) 6mo and older 06/04/2017 Influenza trivalent, 0.5mL ( Fluzone High-dose) 65yo and older 07/16/2023,03/07/2022,03/31/2015,03/29,05/05/2008 [facility] SARS-CoV-2 COVID-19, mRNA, LNP-S, preservative free 06/23/2021,08/05/2020,07/15/2020 Pneumococcal conjugate 20 va lent (Prevnar 20, PCV 20) 2mo and older 03/13/2023 Pneumococcal polysaccharide 23 valent (Pneumovax 23) 2yo and older 03/31/2015 Td Tetanus diptheria (Tdvax) 7yo and older 11/05/2018 Tdap Tetanus diptheria acell ular pertussis (Boostrix; Adacel) 7yo and older 06/21/2008 Surgical History Surgery Date Site/Laterality Comments CHOLECYSTECTOMY PROCEDURE: HISTORICAL CHOLECYSTECTOMY HYSTERECTOMY 2002 PROCEDURE: HISTORICAL TOTAL HYSTERECTOMY WITH BSO; COMMENT: for bleeding, benign TOTAL KNEE ARTHROPLASTY PROCEDURE: HISTORICAL TOTAL KNEE REPLACE; COMMENT: left COLONOSCOPY 2006 PROCEDURE: HISTORICAL COLONOSCOPY; COMMENT: negative COLONOSCOPY 2013 PROCEDURE: HISTORICAL COLONOSCOPY; COMMENT: polyps x 2: tubulovillous adenomas. UPPER GASTROINTESTINAL ENDOSCOPY 10/28/1998 PROCEDURE: [place] UPPER GI ENDOSCOPY PERFORMED; COMMENT: Dr Cooper - esophagitis / gastritis; bx no Barretts & H. pylori. COLONOSCOPY 03/18/2019 PROCEDURE: HISTORICAL COLONOSCOPY; COMMENT: Three polyps: Tubular adenoma x2, tubulovillous x1. Medical History Medical History Date Comments Chronic back pain DX:Chronic elo k pain GERD (gastroesophageal reflux disease) DX:GERD (gastroesophageal reflux disease) Depression 10/05/2010 DX:Depression History of colonic polyps DX:His tory of colonic polyps Osteoporosis 04/29/2015 DX:Osteoporosis; COMMENT: Bone density scan 04/08/2015 OA (osteoarthritis) of knee 09/25/2011 DX:O A (osteoarthritis) of knee Hyperlipemia DX:Hyperlipemia Essential hypertension, benign D X:Essential hypertension, benign Tubular adenoma of colon 11/05/2018 DX:Tubu lar adenoma of colon Family History Medical History Relation Name Comments Colon cancer Brother 1 Colon cancer Brother 2 No Known Problems Daughter 1 No Known Problems Daughter 2 No Known Problems Daughter 3 No Known Problems Daughter 4 Hypertension Father Cataracts Mother Glaucoma Mother Breast cancer Other m cousin 48 Diabetes Sister 1 Colon cancer Sister 2 Other: Bone cancer Sister 3 knee canc er, recieved chemotherapy No Known Problems Son Blindness Neg Hx Macular degeneration Neg Hx Strabismus Neg Hx Relation Name Status Comments Aunt mat Alive Brother 1 (Age 66) colon canc er Brother 2 Alive Brother 3 Alive Brother 4 Alive Daughter 1 Alive Daughter 2 Alive Daughter 3 Alive Daughter 4 Alive Father Maternal Grandfather Maternal Grandmother Mother Other m cousin 48 Paternal Grandfather Paternal Grandmother Sister 1 Alive Sister 2 Alive Sister 3 Sister 4 Alive Sister 5 Alive Son Alive Social History Tobacco Use Types Packs/Day Years Used Date Smoking Tobacco: Never Smokeless Tobacco: Never Tobacco Cessation:Counseling Given: Not Answered Alcohol Use Standard Drinks/Week Comments No 0 (1 standard drink = 0.6 oz pur e alcohol) Comments No Sex and Gender Information Value Date Recorded Sex Assigned at Female 10/07/2024 7:19 PM EDT Legal Sex Female 2:17 AM EST Gender Identity Female 10/07/2024 7:19 PM EDT Sexual Orientation Straight 10/07/2024 7: 19 PM EDT Last Filed Vital Signs Vital Sign Reading Time Taken Comments Blood Pressure 122/78 03/11/2025 11:07 AM EDT Pulse 65 03/11/2025 11:07 AM EDT Temperature 36.1 C (97 F) 03/11/2025 11:07 AM EDT Respiratory Rate 16 03/11/2025 11:07 AM EDT Oxygen Saturation 96% 10/07/2024 12:45 PM EDT Inhaled Oxygen Concentration - - Weight 66.5 kg (146 lb 9.6 oz) 03/11/2025 11:07 AM EDT Height 149 cm (4' 10.66 ) 03/11/2025 11:07 AM ED T Body Mass Index 29.95 03/11/2025 11:07 AM EDT Plan of Treatment Upcoming Encounters Date Type Department Care Team (Late st Contact Info) Description 07/12/2025 11:00 AM EST Office Visit Adult Medicine - [address] [phone] [facility] [address] [place] [address] Health Maintenance Due Date Last Done Comments Zoster Vaccines (1 of 2) 1999 Falls Risk Assessment 05/27/2022 Medicare Annual Wellness Visit 05/27/2022 Social Influencers of Health Screening 05/27/2022 RSV Immunization Adult Patients (1 - 1-dose 75+ series) 2024 Depression Screening 06/17/2024 COVID-19 Vaccine ( - season) 2025 06/23/2021, 08/05/2020, 07/15/2020 Influenza Vaccine (#1) 2025 , 03/07/2022, 06/04/2017, Additional history exists Postponed from 02/15/2025 (Patient Refused) Hypertension/CHF/CAD Annual BMP Blood Test 03/11/2026 03/11/2025, 02/09/2025, 10/07/2024, Additional history exists DTaP,Tdap,and Td Vaccines (3 - Td or Tdap) 11/05/2028 11/05/2018, 06/21/2008 Cholesterol Screening (Lipid Panel) 02/09/2030 02/09/2025, 08/14/2024, 01/15/2024, Additional history exists Osteoporosis Screening (Bone Density Screening) 05/15/2033 05/15/2023, 05/15/2023, 07/11/2017 Hepatitis C Screening Completed 02/18/2014 Pneumococcal Vaccine: 50+ Years Completed 03/13/2023, 03/31/2015 Colorectal Cancer Screening: Colonoscopy Discontinued 03/28/2023 Breast Cancer Screening Discontinued 02/25/20, 01/07/2019, 12/17/2018, Additional history exists HIB Vaccines Aged Out No longer eligi ble based on patient's age to complete this topic HPV Vaccines Aged Out No longer eligi ble based on patient's age to complete this topic Hepatitis A Vaccines Aged Out No long er eligible based on patient's age to complete this topic Hepatitis B Vaccines Aged Out No long er eligible based on patient's age to complete this topic IPV Vaccines Aged Out No longer eligi ble based on patient's age to complete this topic MMR Vaccines Aged Out No longer eligi ble based on patient's age to complete this topic Meningococcal ACWY Vaccine Aged Out N o longer eligible based on patient's age to complete this topic Meningococcal B Vaccine Aged Out No l onger eligible based on patient's age to complete this topic RSV Immunization Patients Under 20 months Aged Out No longer eligible based on patient's age to complete this topic Varicella Vaccines Aged Out No longer eligible based on patient's age to complete this topic Procedures Procedure Name Priority Date/Time Associated Diagnosis Comments COMPREHENSIVE METABOLIC PANEL Routine 03/11/2025 12:05 PM EDT Hyponatremia Essential hypertension, benign Hyperlipidemia, unspecified hyperlipidemia type MG MAMMO DIGITAL SCREENING W MATTI BILAT Routine 02/24/2025 2:29 PM EDT Encounter for screening mammogram for malignant neoplasm of breast LIPID PANEL WITH REFLEX TO DIRECT LDL Routine 02/09/2025 9:44 AM EDT Routine general medical examination at a health care facility Hyperlipidemia, unspecified hyperlipidemia type DXA BONE DENSITY STUDY 1+ SITS AXIAL SKEL Routine 05/15/2023 11:12 AM EST Age-related osteoporosis without current pathological fracture COLONOSCOPY Routine 03/28/2023 HEPATITIS C SCREENING Routine 02/18/2014 from Last 3 Months or Most Recently Relevant to Health Maintenance Results * (ABNORMAL) Comprehensive metabolic panel (03/11/2025 12:05 PM EDT) Sodium 129(L) 133 - 145 mmol/L LAB CHEMISTRY METHOD 03/11/2025 5:28 PM [facility] Potassium 3.3(L) 3.5 - 5.5 mmol/L LAB CHEMISTRY METHOD 03/11/2025 5:28 PM [facility] Chloride 91(L) 96 - 110 mmol/L LAB CHEMISTRY METHOD 03/11/2025 5:28 PM [facility] CO2 30 21 - 32 mmol/L LAB CHEMISTRY METHOD 03/11/2025 5:28 PM [facility] Anion Gap 8 3 - 11 LAB CHEMISTRY METHOD 03/11/2025 5:28 PM [facility] Glucose 88 70 - 100 mg/dL LAB CHEMISTRY METHOD 03/11/2025 5:28 PM [facility] BUN 23 5 - 25 mg/dL LAB CHEMISTRY METHOD 03/11/2025 5:28 PM [facility] Creatinine 0.75 0.50 - 1.10 mg/dL LAB CHEMISTRY METHOD 03/11/2025 5:28 PM [facility] eGFR 83 >=60 mL/min/1. 73m2 LAB CHEMISTRY METHOD 03/11/2025 5:28 PM [facility] Comment:Calculation based on the Chronic Kidney Disease Epidemiology Collaboration (CKD-EPI) equation refit without adjustment for race. BUN/Creatinine Ratio 30.7 LAB CHEMISTRY METHOD 03/11/2025 5:28 PM [facility] Calcium 9.6 8.5 - 10.5 mg/dL LAB CHEMISTRY METHOD 03/11/2025 5:28 PM [facility] AST (SGOT) 24 10 - 42 unit/L LAB CHEMISTRY METHOD 03/11/2025 5:[address] [facility] ALT (SGPT) 28 10 - 60 unit/L LAB CHEMISTRY METHOD 03/11/2025 5:[address] [facility] Alkaline Phosphatase 82 42 - 121 unit/L LAB CHEMISTRY METHOD 03/11/2025 5:[address] [facility] Total Protein 7.1 6.0 - 8.0 g/dL LAB CHEMISTRY METHOD 03/11/2025 5:[address] [facility] Albumin 3.9 3.2 - 5.0 g/dL LAB CHEMISTRY METHOD 03/11/2025 5:[address] [facility] Total Bilirubin 0.3 0.0 - 1.4 mg/dL LAB CHEMISTRY METHOD 03/11/2025 5:[address] [facility] Blood Venous blood specimen / Unknown Venipuncture / Unknown 03/11/2025 12:05 PM EDT 03/11/2025 12:05 PM EDT Chantelle Voss MD LAB BLOOD ORDERABLES F inal Result [facility] [address] [place] [address], [place] [phone] * MG Mammo Digital Screening w Matti bilat (02/24/2025 2:29 PM EDT) Anatomical Region Laterality Modality Breast Bilateral Mammography 02/24/2025 3:45 PM EDT Impressions 02/24/2025 3:58 PM EDT Benign. BI-RADS CATEGORY: 2 - BENIGN RECOMMENDATION: Screening bilateral mammogram is recommended in 1 year. Mammo Location: [facility], [address] [place], [place], [address], . -------- FINAL REPORT -------- Dictated By: Johnathan Andrade Dictated Date: 02/24/2025 15:45 ET Assigned Physician: Johnathan Andrade Reviewed and Electronically Signed By: Johnathan Andrade Signed Date: 02/24/2025 15:58 ET Workstation ID: [id number] Transcribed By: Self Edit Transcribed Date: 02/24/2025 15:45 ET Narrative 02/24/2025 3:58 PM EDT CLINICAL: 74 years old, Female, routine annual exam. COMPARISON: 10/02/2004. TECHNIQUE: Bilateral MLO and CC views were obtained digitally with 3-D mammogram (digital breast tomosynthesis). Computer-aided detection was utilized in evaluation of this exam (CAD). FINDINGS: Scattered atherosclerotic calcifications. No suspicious mass or architectural distortion. No suspicious calcification. There has been no significant change from prior exam(s). BREAST DENSITY: B - There are scattered areas of fibroglandular density. Procedure Note Johnathan Andrade MD - 02/24/2025 CLINICAL: 74 years old, Female, routine annual exam. COMPARISON: 10/02/2004. TECHNIQUE: Bilateral MLO and CC views were obtained digitally with 3-Dmammogram (digital breast tomosynthesis). Computer-aided detection wasutilized in evaluation of this exam (CAD). FINDINGS: Scattered atherosclerotic calcifications. No suspicious mass or architectural distortion. No suspiciouscalcification. There has been no significant change from prior exam(s). BREAST DENSITY: B - There are scattered areas of fibroglandular density. IMPRESSION: Benign. BI-RADS CATEGORY: 2 - BENIGN RECOMMENDATION: Screening bilateral mammogram is recommended in 1 year. Mammo Location: [facility], [address] [place] [address], [id number], . -------- FINAL REPORT -------- Dictated By: Johnathan Andrade Dictated Date: 02/24/2025 15:45 ET Assigned Physician: Johnathan Andrade Reviewed and Electronically Signed By: Johnathan Andrade Signed Date: 02/24/2025 15:58 ET Workstation ID: [id number] Transcribed By: Self Edit Transcribed Date: 02/24/2025 15:45 ET [facility] BI PROCEDURES Final Resul t * (ABNORMAL) Lipid panel with reflex to direct LDL (02/09/2025 9:44 AM EDT) Cholesterol 203(H) 0 - 200 mg/dL LAB CHEMISTRY METHOD 02/09/2025 5:[address] [facility] Triglycerides 184(H) 0 - 150 mg/dL LAB CHEMISTRY METHOD 02/09/2025 5:[address] [facility] HDL 59 >=40 mg/dL LAB CHEMISTRY METHOD 02/09/2025 5:[address] [facility] LDL Calculated 107(H) 0 - 100 mg/dL LAB CHEMISTRY METHOD 02/09/2025 5:[address] [facility] Comment:Estimated LDL Calcul ated using equation: Total cholesterol - HDL cholesterol - (Triglycerides/5) VLDL Cholesterol Bridger 36.8 mg/dL LAB CHEMISTRY METHOD 02/09/2025 5:[address] [facility] Non HDL Chol. (LDL+VLDL) 144 <145 mg/dL LAB CHEMISTRY METHOD 02/09/2025 5:[address] [facility] Chol/HDL Ratio 3.4 0.0 - 4.4 LAB CHEMISTRY METHOD 02/09/2025 5:[address] [facility] Blood Venous blood specimen / Unknown Venipuncture / Unknown 02/09/2025 9:44 AM EDT 02/09/2025 9:44 AM EDT us [facility] BLOOD ORDERABLES Final Re sult [facility] [address] [place] [address], [place] [phone] * DXA BONE DENSITY STUDY 1+ SITS AXIAL SKEL (05/15/2023 11:12 AM EST) Anatomical Region Laterality Modality Bone Densitometr y 03/13/2023 11:1 6 AM EDT Narrative 05/15/2023 7:39 PM EST STUDY: DUAL ENERGY X-RAY ABSORPTIOMETRY / DXA REASON FOR EXAM: Female, 73 years old osteoporosis TECHNIQUE: Bone Mineral Density (BMD) measurements of the lumbar spine and left hip were obtained using Volo[employer] Discovery W (S/N [id number]). COMPARISON: July 11, 2017 FINDINGS: L1-L4 BMD: 0.760 g/cm2 L1-L4 T score: -2.6. This corresponds to osteoporosis. This represents a -1.4 % decrease in bone density compared with prior exam from July 11, 2017. Left femoral neck BMD: 0.530 g/cm2 Left femoral neck T score: -2.9. This corresponds to osteoporosis. Left total hip BMD: 0.747 g/cm2 Left total hip T score: -1.6. This corresponds to osteopenia. This represents a -3.4 % decrease in bone density compared with prior exam from July 11, 2017. * - Indicates a statistically significant change. IMPRESSION: IMPRESSION: Osteoporosis Reference Information: The T-score is the number of standard deviations above or below the standard which is normal for young adults at their peak bone mineral density. The World Health Organization (WHO) interprets the T-scores as follows: At or above -1 SD Normal bone density Between -1 and -2.5 SD Osteopenia At or below -2.5 SD Osteoporosis Procedure Note Lucia Velásquez MD - 07/23/2023 STUDY: DUAL ENERGY X-RAY ABSORPTIOMETRY / DXA REASON FOR EXAM: Female, 73 years old osteoporosis TECHNIQUE: Bone Mineral Density (BMD) measurements of the lumbar spineand left hip were obtained using [employer] Discovery W (S/N [id number]). COMPARISON: July 11, 2017 FINDINGS: L1-L4 BMD: 0.760 g/cm2 L1-L4 T score: -2.6. This corresponds to osteoporosis. This represents a -1.4 % decrease in bone density compared with prior examfrom July 11, 2017. Left femoral neck BMD: 0.530 g/cm2 Left femoral neck T score: -2.9. This corresponds to osteoporosis. Left total hip BMD: 0.747 g/cm2 Left total hip T score: -1.6. This corresponds to osteopenia. This represents a -3.4 % decrease in bone density compared with prior examfrom July 11, 2017. * - Indicates a statistically significant change. IMPRESSION: IMPRESSION: Osteoporosis Reference Information: The T-score is the number of standard deviations above or below thestandard which is normal for young adults at their peak bone mineral density. The World HealthOrganization (WHO) interprets the T-scores as follows: At or above -1 SD Normal bone density Between -1 and -2.5 SD Osteopenia At or below -2.5 SD Osteoporosis Dorcas Vaca DO IMG DXA PROCEDURES Final Result * Colonoscopy (03/28/2023) [facility] Colonoscopy no interpretation , abstracted Anatomical Region Laterality Modality Other Historical Provider HEALTH MAINTENANCE Final Result * Hepatitis C Screening (02/18/2014) [facility] Hepatitis C Screening abstracted Historical Provider HEALTH MAINTENANCE Final Result from Last 3 Months or Most Recently Relevant to Health Maintenance Insurance [facility] MEDIC[facility] Member Subscriber Plan / Payer (Ef fective 2021-Present) Name:Lakesha Kline Relation to Subscriber:Self Name:Lakesha Kline Payer ID:[id number] Group ID:[id number] Type:Not on file Address: [address] [address] Care Teams Communications Coordinator Relationship Specialty Start Date End Date Chantelle Voss MD [address] [place] [id number] PCP - General 12/16/23
== END 2025-06-15 11:39 | disposition home or self-care (01) ==
LOC: HO.HSM 10:45
PROVIDERS: PCP Physician Assistant; Visit Provider Psychiatry & Neurology Neurology
DX: F03.918 Unspecified dementia, unspecified severity, with other behavioral disturbance (principal)
CPT/HCPCS: 99204

== ENCOUNTER 2025-06-15 10:45 | Outpatient (REF) | payer OTHER, SELFPAY ==
[2025-06-15 13:33] LABS: Thyroid Stimulating Hormone 0.30 uIU/mL (0.32-4.0)
[2025-06-15 13:47] LABS: Folate 11.8 ng/mL (> or = 4.0); Vitamin B12 333 pg/mL (200-900)
[2025-06-16 03:37] LABS: Syphilis Screen Nonreactive (Nonreactive)
[2025-06-16 05:13] LABS: Lyme Abs Screen <0.90 index
== END 2025-06-15 10:46 | disposition home or self-care (01) ==
LOC: HO.LAB 10:45
PROVIDERS: PCP Physician Assistant; Visit Provider Psychiatry & Neurology Neurology
DX: F03.918 Unspecified dementia, unspecified severity, with other behavioral disturbance (principal); Z79.899 Other long term (current) drug therapy
CPT/HCPCS: 36415; 82607; 82746; 84443; 86617; 86618; 86780; 99202